=== PATIENT | male | born 1965 | race Caucasian/White ===

== ENCOUNTER 2017-02-12 06:15 | Emergency (ER) | payer OTHER ==
[2017-02-12 06:30] VITALS: BP 179/98
--- NOTE | 2017-02-12 07:45 | EDM.PDOC ---
ED HPI Trauma - General Chief Complaint: Lower Extremity Injury/Pain Stated Complaint: RIGHT KNEE HURTS Time Seen by Provider: 02/12/17 06:32 Source: Reports: Patient, RN notes reviewed History Limitations: Reports: No limitations - History of Present Illness INITIAL COMMENTS - FREE TEXT/NARRATIVE: The patient states that he pushed his lawn tractor into his garage last night, and while doing so, developed right knee pain, which is worse today. He did not fall or otherwise injure his knee. He is otherwise uninjured. He reports pain to the medial aspect of his right knee while at rest, made worse if he bears weight. He denies prior right knee injury. The patient drove himself here. Allergies/ADRs: Allergies No Known Allergies Allergy (Verified 02/12/17 06:25) Home Medications: Ambulatory Orders Citalopram [Citalopram Hbr] 40 mg PO DAILY 07/22/14 [Confirmed 01/29/16] Omeprazole 20 mg PO DAILY 07/22/14 [Confirmed 02/12/17] amLODIPine [Norvasc] 5 mg PO DAILY 07/22/14 [Confirmed 01/29/16] amLODIPine [Norvasc] 10 mg PO BEDTIME #30 tab 07/22/14 [Confirmed 01/29/16] Naproxen 1 tab PO Q12H PRN #20 tablet 02/12/17 Simvastatin [Simvastatin] 02/12/17 Past Medical History Cardiovascular History: Reports: High cholesterol, Hypertension Gastrointestinal History: Reports: GERD Psychiatric History: Reports: Depression Endocrine/Metabolic History: Reports: Diabetes, type II (resolved) - Past Surgical History GI Surgical History: Reports: Hernia, abdominal Social & Family History - Family History Family Medical History: Noncontributory - Tobacco Use Smoking Status *Q: Never Smoker Tobacco Use Within Last Twelve Months: Cigars - Alcohol Use Alcohol Use History: Yes Days Per Week of Alcohol Use: 7 Number of Drinks Per Day: 6 Total Drinks Per Week: 42 Alcohol Use Frequency: Socially - Recreational Drug Use Recreational Drug Use: No - Living Situation & Occupation Living situation: Reports: , with spouse 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[employer]) Review of Systems - Review of Systems Review Of Systems: See Below Constitutional: Reports: no symptoms Eyes: Reports: no symptoms Ears: Reports: no symptoms Nose: Reports: no symptoms Mouth/Throat: Reports: no symptoms Respiratory: Reports: No Symptoms Cardiovascular: Reports: no symptoms GI/Abdominal: Reports: No symptoms Genitourinary: Reports: no symptoms Musculoskeletal: Reports: no symptoms Skin: Reports: no symptoms Neurological: Reports: No Symptoms Psychiatric: Reports: no symptoms Trauma Exam - Physical Exam Exam: See Below Exam Limited By: No limitations General Appearance: Reports: alert, WD/WN, no apparent distress Extremities: Reports: other (No visible abnormality to the right knee, when compared to the left, such as swelling, erythema, ecchymosis, or abrasion. No visible or palpable effusion. There is tenderness to palpation of the medial aspect of the knee - no tenderness elsewhere. No laxity or pain adduction with stressing the medial or lateral collateral ligaments. Negative anterior and posterior drawer signs. Neurovascular status of the right lower extremity is intact.) Course - Vital Signs Last Recorded V/S: Last Vital Signs Temp 36.9 C 02/12/17 06:27 Pulse 70 02/12/17 06:27 Resp 18 02/12/17 06:27 BP 179/98 H 02/12/17 06:27 Pulse Ox 97 02/12/17 06:27 - Orders/Labs/Meds Orders: Active Orders 24 hr Category Date Time Status Knee 3V Rt [CR] Stat Exams 02/12/17 06:45 Taken DME for Discharge [COMM] Stat Oth 02/12/17 07:44 Ordered - Radiology Interpretation Free Text/Narrative:: 4-view radiographs of the right knee do not appear to demonstrate any acute abnormalities, such as fracture or dislocation. Small effusion cannot be excluded. Formal read per the Radiologist pending. - Re-Assessments/Exams Free Text/Narrative Re-Assessment/Exam: 02/12/17 07:45 I have ordered a knee immobilizer for the patient. We will see if he needs crutches, as well. 02/12/17 08:09 The patient does not feel that he needs crutches. Departure - Departure Time of Disposition: 08:03 Disposition: Home, Self-Care 01 Condition: fair Clinical Impression: Internal derangement of right knee Referrals: Charly Hernandez MD [Physician] - Forms: ED Department Discharge Additional Instructions: You were seen in the emergency room after straining your right knee. Workup in the ER included x-rays of your right knee. Your x-rays are normal. No fracture or dislocation. You have MOST LIKELY strained your right knee. You have been placed into a knee immobilizer. Apply this each morning, and remove at bedtime. Be careful going up or down stairs, as you will not be able to bend your right knee. You may apply an ice pack right over the knee immobilizer. You have been started on the pain medicine naproxen. Take one tablet every 12 hours, with food, as needed for pain. Followup with the Orthopedic Surgeon Dr. Hernandez at the next available appointment. If any other problems, please do not hesitate to return to the ER. - My Orders Last 24 Hours: My Active Orders 02/12/17 06:45 Knee 3V Rt [CR] Stat 02/12/17 07:44 DME for Discharge [COMM] Stat - Assessment/Plan Last 24 Hours: My Active Orders 02/12/17 06:45 Knee 3V Rt [CR] Stat 02/12/17 07:44 DME for Discharge [COMM] Stat
[2017-02-12] MEDS ORDERED: Naproxen 500 MG Tab PO ONE (07:55)
--- NOTE | 2017-02-12 16:18 | CR ---
Right knee: Four portable views of the right knee were obtained. Comparison: No previous study. Medial and lateral joint spaces are maintained in height. No joint effusion is seen. No fracture or other bony abnormality is identified. Impression: 1. No abnormality is identified on four-view right knee exam. Diagnostic code #1
== END 2017-02-12 08:15 | disposition home or self-care (01) ==
LOC: JD.ED 06:15
DX: M23.91 Unspecified internal derangement of right knee (principal); I10 Essential (primary) hypertension; E78.00 Pure hypercholesterolemia, unspecified; K21.9 Gastro-esophageal reflux disease without esophagitis; F32.9 Major depressive disorder, single episode, unspecified; E11.9 Type 2 diabetes mellitus without complications; Z79.899 Other long term (current) drug therapy
CPT/HCPCS: 73562; 99283; A9270; 99282

== ENCOUNTER 2018-01-17 11:07 | Day surgery (SDC) | payer OTHER ==
--- NOTE | 2018-01-17 10:46 | PCM.PREANE ---
<Ning Mayer - Last Filed: 01/17/18 10:41> Preanesthetic Assessment - Anesthesia/Transfusion/Family Hx Family History of Anesthesia Reaction: No Transfusion History: No Prior Transfusion(s) Intubation History: Unknown - Review of Systems Pulmonary: No Symptoms (smokes less than 1 pack/day times 30 years.) Cardiovascular: No Symptoms (History of HTN) Gastrointestinal: No Symptoms (GERD) Other: Reports: None (history of ETOH abuse), Diabetes (am blood sugar=), Depression, Anxiety - Physical Assessment NPO Status Date: 01/16/18 Mental Status: Alert & Oriented x3 - Lab Values: All lab values reviewed and noted and within acceptable ranges to proceed with scheduled procedure. - Allergies Allergies/Adverse Reactions: Allergies Allergy/AdvReac Type Severity Reaction Status Date / Time No Known Allergies Allergy Verified 02/12/17 06:25 - Anesthesia Plan Pre-Op Medication Ordered: None - Acknowledgements Anesthesia Type Planned: MAC Pt an Appropriate Candidate for the Planned Anesthesia: Yes Alternatives and Risks of Anesthesia Discussed w Pt/Guardian: Yes Pt/Guardian Understands and Agrees with Anesthesia Plan: Yes PreAnesthesia Questionnaire Cardiovascular History: Reports: High Cholesterol, Hypertension Respiratory History: Reports: COPD Gastrointestinal History: Reports: GERD Psychiatric History: Reports: Depression Endocrine/Metabolic History: Reports: Diabetes, Type II - Past Surgical History GI Surgical History: Reports: Hernia, Abdominal - SUBSTANCE USE Smoking Status *Q: Never Smoker Tobacco Use Within Last Twelve Months: Cigars Days Per Week of Alcohol Use: 7 Number of Drinks Per Day: 6 Total Drinks Per Week: 42 Recreational Drug Use History: No - HOME MEDS Home Medications: Home Meds Citalopram [Citalopram Hbr] 40 mg PO DAILY 07/22/14 [History] Omeprazole 20 mg PO DAILY 07/22/14 [History] amLODIPine [Norvasc] 5 mg PO DAILY 07/22/14 [History] amLODIPine [Norvasc] 10 mg PO BEDTIME #30 tab 07/22/14 [Rx] Naproxen 1 tab PO Q12H PRN #20 tablet 02/12/17 [Rx] Simvastatin [Simvastatin] 02/12/17 [History] - CURRENT (IN HOUSE) MEDS Current Meds: Current Medications Lactated Ringer's (Ringers, Lactated) 1,000 mls @ 125 mls/hr IV ASDIRECTED ELROY Lidocaine/Sodium Bicarbonate (Buffered Lidocaine 1% In Ns 8.4%) 0.25 ml IDERM ONETIME PRN PRN Reason: Prior to IV Start Sodium Chloride (Saline Flush) 10 ml FLUSH ASDIRECTED PRN PRN Reason: Keep Vein Open Discontinued Medications Lidocaine HCl (Xylocaine-Mpf 1%) Confirm Administered Dose 4 mls @ as directed .ROUTE .STK-MED ONE Stop: 01/17/18 10:24 Propofol (Diprivan 20 Ml) Confirm Administered Dose 400 mg .ROUTE .STK-MED ONE Stop: 01/17/18 10:24 <Arlyn Gutierres - Last Filed: 01/17/18 11:48> Preanesthetic Assessment - Procedure Proposed Procedure: Colonoscopy - Anesthesia/Transfusion/Family Hx Anesthesia History: No Prior Anesthesia - Review of Systems General: No Symptoms Pulmonary: Cough (Occasional, productive at times. ) Neurological: Headache (Started when he was drinking his bowel prep. ) - Physical Assessment NPO Status Time: 22:00 Pulse: 81 O2 Sat by Pulse Oximetry: 93 Respiratory Rate: 16 Blood Pressure: 162/113 Temperature: 36.4 C Weight: 118 kg ASA Class: 3 Airway Class: Mallampati = 2 Dentition: Reports: Broken Tooth/Teeth Thyro-Mental Finger Breadths: 3 Mouth Opening Finger Breadths: 3 ROM/Head Extension: Full Lungs: Clear to Auscultation, Normal Respiratory Effort Cardiovascular: Regular Rate, Regular Rhythm - Acknowledgements Additional Comments: Dr. Neville aware of high blood pressure. Patient states he is always this high. He does have a primary care doctor managing his blood pressure. He is aware he is at an increased risk for heart attack, stroke, and seizures. I did discuss the option of having him come back once his blood pressure is under better control as his colonoscopy is an elective procedure. Both Dr. Neville and Mr. Sabillon wish to proceed at this time.
[~2018-01-17 11:07] MED LIST: Lidocaine 1% 4 ML ONE; Propofol 200 MG/20 ML SDV ONE; Sodium Chloride 0.9% 10 ML Syringe FLUSH PRN
[2018-01-17] MEDS: Lidocaine 1%/Sod Bicarbonate in NS 8.4% 1 ML Syringe IDERM PRN (11:35)
[2018-01-17] MEDS: Lactated Ringers 1,000 ML IV SCH (11:35)
[2018-01-17] MEDS ORDERED: fentaNYL 100 MCG/2 ML SDV ONE (11:53)
[2018-01-17] MEDS ORDERED: Midazolam 1 MG/ML 2 ML SDV ONE (11:59)
[2018-01-17] MEDS ORDERED: Labetalol 100 MG/20 ML MDV ONE (12:03)
--- NOTE | 2018-01-17 12:22 | PCM.OPNOTE ---
- General Post-Op/Procedure Note Date of Surgery/Procedure: 01/17/18 Operative Procedure(s): Colonoscopy Findings: Uncomplicated small sigmoid diverticuli Pre Op Diagnosis: Screening colonoscopy Post-Op Diagnosis: Sigmoid diverticulosis Anesthesia Technique: MAC, Moderate Sedation Primary Surgeon: Salty Neville Pathology: None EBL in mLs: 0 Complications: None Condition: Good Free Text/Narrative:: After adequate IV sedation and analgesia was obtained with monitoring the patient was placed on his left side. Perianal inspection and digital rectal examination were performed and were unremarkable. A lubricated colonoscope was then inserted into the rectum then advanced under direct vision with air insufflation as necessary to reach cecum. The bowel preparation was adequate. The cecum ascending colon transverse and descending colons were endoscopically normal with no mass lesions or inflammatory changes seen. The sigmoid had a few scattered unconjugated diverticuli with some hypertrophy of the circular smooth muscle. The rectum in both views was unremarkable. Air was removed as I finished the procedure which he tolerated well. [employer] photographs were taken for the patient and for the medical record.
--- NOTE | 2018-01-17 12:26 | PCM48HPAN ---
Post Anesthesia Note - EVALUATION WITHIN 48HRS OF ANESTHETIC Vital Signs in Normal Range: Yes Patient Participated in Evaluation: Yes Respiratory Function Stable: Yes Airway Patent: Yes Cardiovascular Function Stable: Yes Hydration Status Stable: Yes Pain Control Satisfactory: Yes Nausea and Vomiting Control Satisfactory: Yes Mental Status Recovered: Yes Pulse Rate: 87 SaO2: 93 Resp Rate: 16 Temperature: 36.4 C Blood Pressure: 139/90
[2018-01-17] MEDS: amLODIPine 10 MG Tab PO ONE (12:32)
[2018-01-17 13:06] VITALS: BP 162/93
== END 2018-01-17 13:00 | disposition home or self-care (01) ==
LOC: JD.SDS 11:07
PROVIDERS: ATTEND Surgery
DX: Z12.11 Encounter for screening for malignant neoplasm of colon (principal); K57.30 Diverticulosis of large intestine without perforation or abscess without bleeding; K21.9 Gastro-esophageal reflux disease without esophagitis; F32.9 Major depressive disorder, single episode, unspecified; F41.1 Generalized anxiety disorder; E78.5 Hyperlipidemia, unspecified; I10 Essential (primary) hypertension; E66.9 Obesity, unspecified; F17.210 Nicotine dependence, cigarettes, uncomplicated; E11.9 Type 2 diabetes mellitus without complications; J44.9 Chronic obstructive pulmonary disease, unspecified; Z79.899 Other long term (current) drug therapy; Z79.84 Long term (current) use of oral hypoglycemic drugs; Z68.37 Body mass index [BMI] 37.0-37.9, adult
CPT/HCPCS: 45380; 82962; A9270; J2250; J3010; J7120; 00812; J2704

== ENCOUNTER 2020-04-13 13:07 | Day surgery (SDC) | payer OTHER ==
[2020-04-13] MEDS ORDERED: Vancomycin 1.75 GM in Sodium Chloride 0.9% 500 ML IV ONE (13:36)
[2020-04-13] MEDS ORDERED: Sodium Chloride 0.9% 10 ML Syringe FLUSH PRN (13:36)
[2020-04-13] MEDS ORDERED: Sodium Chloride 0.9% 1,000 ML IV ONE ×2 (13:37→19:34)
--- NOTE | 2020-04-13 14:05 | CR ---
Left forearm: 2 views left forearm were obtained. Multiple small radiopacities are noted within the posterior and ulnar side of the proximal forearm. Soft tissue swelling is seen in this area. No acute fracture or other bony abnormality is seen. Impression: 1. Small off radiopaque foreign bodies as noted above with soft tissue swelling. Diagnostic code #3 This report was dictated in MDT
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
[2020-04-13] MEDS ORDERED: metroNIDAZOLE/Normal Saline 500 MG in Premix Bag 1 BAG IV ONE (15:12)
[2020-04-13] MEDS ORDERED: Cefepime 2 GM in Premix Bag 1 BAG IV ONE (15:12)
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
[2020-04-13] MEDS ORDERED: Bupivacaine 0.5%/EPINEPHrine 1:200,000 50 ML MDV ONE (17:19)
[2020-04-13] MEDS ORDERED: Propofol 200 MG/20 ML SDV ONE (17:34)
[2020-04-13] MEDS ORDERED: fentaNYL 100 MCG/2 ML SDV ONE (17:34)
[2020-04-13] MEDS ORDERED: Midazolam 1 MG/ML 2 ML SDV ONE ×2 (17:35)
[2020-04-13] MEDS ORDERED: Bupivacaine 0.25% 10 ML SDV ONE (17:37)
--- NOTE | 2020-04-13 17:50 | PCM.PREANE ---
Preanesthetic Assessment - Anesthesia/Transfusion/Family Hx Anesthesia History: No Prior Anesthesia Transfusion History: No Prior Transfusion(s) Intubation History: Unknown - Review of Systems General: No Symptoms Pulmonary: Cough Cardiovascular: No Symptoms Gastrointestinal: No Symptoms Neurological: No Symptoms Other: Reports: None - Physical Assessment NPO Status Date: 04/12/20 NPO Status Time: 20:30 Vital Signs: Last Vital Signs Temp 97.7 F 04/13/20 16:53 Pulse 81 04/13/20 16:53 Resp 16 04/13/20 16:53 BP 118/76 04/13/20 16:53 Pulse Ox 91 L 04/13/20 16:53 Height: 1.73 m Weight: 110.223 kg ASA Class: 2E Mental Status: Alert & Oriented x3 Airway Class: Mallampati = 3 Dentition: Reports: Broken Tooth/Teeth, Missing Tooth/Teeth, Caries Thyro-Mental Finger Breadths: 3 Mouth Opening Finger Breadths: 3 ROM/Head Extension: Full Lungs: Clear to Auscultation, Decreased Breath Sounds Cardiovascular: Regular Rate, Regular Rhythm - Allergies Allergies/Adverse Reactions: Allergies Allergy/AdvReac Type Severity Reaction Status Date / Time No Known Allergies Allergy Verified 04/13/20 13:52 - Acknowledgements Anesthesia Type Planned: General Anesthesia, Regional Block (for postoperative pain - axillary), MAC Pt an Appropriate Candidate for the Planned Anesthesia: Yes Alternatives and Risks of Anesthesia Discussed w Pt/Guardian: Yes Pt/Guardian Understands and Agrees with Anesthesia Plan: Yes PreAnesthesia Questionnaire HEENT History: Reports: Impaired Vision Other HEENT History: wears glasses Cardiovascular History: Reports: High Cholesterol, Hypertension Respiratory History: Reports: COPD, Sleep Apnea Gastrointestinal History: Reports: GERD Musculoskeletal History: Reports: Other (See Below) Psychiatric History: Reports: Anxiety, Depression Endocrine/Metabolic History: Reports: Diabetes, Type II, Obesity/BMI 30+ - Past Surgical History Cardiovascular Surgical History: Reports: Coronary Artery Stent GI Surgical History: Reports: Hernia, Abdominal - SUBSTANCE USE Smoking Status *Q: Current Every Day Smoker Recreational Drug Use History: No - HOME MEDS Home Medications: Home Meds Citalopram [Citalopram HBr] 40 mg PO DAILY 07/22/14 [History] Omeprazole 20 mg PO DAILY 07/22/14 [History] amLODIPine [Norvasc] 5 mg PO DAILY 07/22/14 [History] Simvastatin 20 mg PO BEDTIME 02/12/17 [History] Ferrous Sulfate [Iron] 325 mg PO DAILY 01/17/18 [History] Fluticasone Propionate [Flonase] 2 spray JL DAILY 01/17/18 [History] Lisinopril 40 mg PO DAILY 01/17/18 [History] metFORMIN HCl [Metformin HCl] 1,000 mg PO BID 01/17/18 [History] Aspirin [Ecotrin EC] 81 mg PO DAILY 07/13/18 [History] - CURRENT (IN HOUSE) MEDS Current Meds: Current Medications Sodium Chloride (Saline Flush) 10 ml FLUSH ASDIRECTED PRN PRN Reason: Keep Vein Open Last Admin: 04/13/20 13:51 Dose: 10 ml Discontinued Medications Bupivacaine HCl (Sensorcaine-Mpf 0.25%) Confirm Administered Dose 10 ml .ROUTE .STK-MED ONE Stop: 04/13/20 17:38 Bupivacaine HCl/Epinephrine Bitart (Marcaine 0.5%/Epinephrine 1:200,000) Confirm Administered Dose 50 ml .ROUTE .STK-MED ONE Stop: 04/13/20 17:20 Fentanyl (Sublimaze) Confirm Administered Dose 100 mcg .ROUTE .STK-MED ONE Stop: 04/13/20 17:35 Sodium Chloride (Normal Saline) 1,000 mls @ 999 mls/hr IV ONETIME ONE Stop: 04/13/20 14:37 Last Admin: 04/13/20 13:50 Dose: 999 mls/hr Vancomycin HCl 1.75 gm/ Sodium (Chloride) 500 mls @ 250 mls/hr IV ONETIME ONE Stop: 04/13/20 13:37 Last Admin: 04/13/20 14:40 Dose: 250 mls/hr Cefepime HCl 2 gm/ Premix 50 mls @ 100 mls/hr IV ONETIME ONE Stop: 04/13/20 15:41 Last Admin: 04/13/20 15:51 Dose: 100 mls/hr Metronidazole 500 mg/ Premix 100 mls @ 100 mls/hr IV ONETIME ONE Stop: 04/13/20 16:11 Last Admin: 04/13/20 15:47 Dose: 100 mls/hr Midazolam HCl (Versed 1 Mg/Ml) Confirm Administered Dose 4 mg .ROUTE .STK-MED ONE Stop: 04/13/20 17:36 Midazolam HCl (Versed 1 Mg/Ml) Confirm Administered Dose 2 mg .ROUTE .STK-MED ONE Stop: 04/13/20 17:36 Propofol (Diprivan 20 Ml) Confirm Administered Dose 200 mg .ROUTE .STK-MED ONE Stop: 04/13/20 17:35
[2020-04-13] MEDS ORDERED: Ondansetron 4 MG/2 ML SDV ONE (19:13)
[2020-04-13] MEDS ORDERED: HYDROmorphone 0.5 MG/0.5 ML Syringe IVPUSH PRN (19:19)
[2020-04-13] MEDS ORDERED: fentaNYL 100 MCG/2 ML SDV IVPUSH PRN (19:19)
--- NOTE | 2020-04-13 19:27 | PCM.PRNOTE ---
- Free Text/Narrative Note: Postoperative regional pain control requested by surgeon. Pre-op Dx: Left forearm wound Surgical procedure: Left forearm wound debridement and washout Procedure: Left axillary block of brachial plexus with U/S guidance Requesting physician: Dr. Hussein Singleton Risks and benefits discussed with the patient preoperatively including infection, bleeding, incomplete or failed block, possible nerve damage, local anesthetic toxicity. Chart reviewed, VS stable. Permit signed. Patient in preoperative room, stable , alert and awake. Time out performed at 18 :08. Oxygen 3L via NC. Left arm abducted 90 degrees, supinated and supported on the bedside table. Left arm has been prepped with Chloraprep x 1 and allowed to dry. Midazolam 4 mg IV given incrementally. Under aseptic technique, the brachial plexus branches were identified around axillary artery under ultrasound prior to needle insertion. 2" Stimuplex needle #22 G was inserted under US guidance. Under direct visualization of needle tip the injection of 0.25% Bupivacaine 10 ml mixed with 10 ml of Lidocaine 2% with 1:200k epinephrine total of 20 mls in divided doses around median, radial and ulnar branches. Negative aspiration was maintained with each 3 ml aliquot of injection. completed without problems. No local anesthetic toxicity was noted. Patient is awake, stable and tolerated the procedure well. Please see the attached U/S images Time: 18:08 - 18:16
[2020-04-13] MEDS ORDERED: Morphine 2 MG/ML Syringe IVPUSH PRN (19:28)
[2020-04-13] MEDS: Lactated Ringers 1,000 ML IV SCH (19:35)
--- NOTE | 2020-04-13 19:45 | PCM.PRNOTE ---
- Free Text/Narrative Note: Date: 04/13/2020 Operation: left forearm wound debridement and washout Findings: minimal devitalized tissue. No purulence. Specimen for culture sent from wound EBL 50 cc Detailed Report: The patient had a regional block placed by the anesthesia provider in holding. The patient was taken to the OR and timeout performed. Monitored sedation was provided. The left arm was prepped and draped in sterile fashion. 10 cc 0.5% marcaine with epinephrine was injected around the wound. The wound opening was probed with a hemostat. There was a thin layer of necrotic debris/ devitalized tissue. This was removed sharply with scissors. There was healthy subcutaneous fat beneath this. There was some undermining between skin and the underlying soft tissue. No pus or foul odor was encountered. The ragged skin edges were debrided sharply with monopolar energy back to healthy, bleeding tissue. In the wound bed, a vein was transected during debridement. This was controlled with a hemostat, and a vicryl suture ligature was placed. With all devitalized tissue sharply debrided, the wound measured about 4 x 3 x 1 cm. A specimen from the wound was sent for culture. 700 cc sterile saline solution was used to irrigate the wound. A moist kerlix was used to pack to wound bed, and dry kerlix wrapped around this site. This was reinforced with an IVONNE wrap. The patient tolerated the procedure well. Hussein Singleton MD General Surgery
--- NOTE | 2020-04-13 19:56 | PCM48HPAN ---
Post Anesthesia Note - EVALUATION WITHIN 48HRS OF ANESTHETIC Vital Signs in Normal Range: Yes Patient Participated in Evaluation: Yes Respiratory Function Stable: Yes Airway Patent: Yes Cardiovascular Function Stable: Yes Hydration Status Stable: Yes Pain Control Satisfactory: Yes Nausea and Vomiting Control Satisfactory: Yes Mental Status Recovered: Yes Vital Signs: Last Vital Signs Temp 98.6 F 04/13/20 19:31 Pulse 81 04/13/20 16:53 Resp 16 04/13/20 19:45 BP 128/65 04/13/20 19:45 Pulse Ox 93 L 04/13/20 19:45
[2020-04-13] MEDS ORDERED: Simvastatin 20 MG Tab PO SCH (21:00)
[2020-04-13] MEDS: Acetaminophen 325 MG Tab PO SCH (22:11)
[2020-04-13] MEDS: Cefepime 1 GM in Premix Bag 1 BAG IV SCH (22:23)
[2020-04-13] MEDS: metroNIDAZOLE/Normal Saline 500 MG in Premix Bag 1 BAG IV SCH (23:45)
[2020-04-14] MEDS: oxyCODONE 5 MG Tab PO PRN ×2 (00:51→08:25)
[2020-04-14] MEDS: Acetaminophen 325 MG Tab PO SCH ×2 (04:54→11:52)
[2020-04-14] MEDS: Lactated Ringers 1,000 ML IV SCH (05:02)
[2020-04-14] MEDS: Cefepime 1 GM in Premix Bag 1 BAG IV SCH (08:26)
[2020-04-14] MEDS: metroNIDAZOLE/Normal Saline 500 MG in Premix Bag 1 BAG IV SCH (08:28)
[2020-04-14 08:44] VITALS: BP 98/76
[2020-04-14] MEDS ORDERED: amLODIPine 5 MG Tab PO SCH (09:00)
[2020-04-14] MEDS ORDERED: Aspirin 81 MG Tab.EC PO SCH (09:00)
[2020-04-14] MEDS ORDERED: Citalopram 20 MG Tab PO SCH (09:00)
[2020-04-14] MEDS ORDERED: Pantoprazole 40 MG Tab.CR PO SCH (09:00)
[2020-04-14] MEDS ORDERED: Vancomycin 1.75 GM in Sodium Chloride 0.9% 500 ML IV ONE (09:00)
[2020-04-14 09:49] VITALS: PULSE 71
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
== END 2020-04-14 12:00 | disposition home or self-care (01) ==
LOC: JD.ED 13:07 → JD.SDS 15:10 → JD.MS 17:00 → JD.SDS 04-14 12:00
PROVIDERS: ATTEND Surgery
DX: S51.842A Puncture wound with foreign body of left forearm, initial encounter (principal); E78.00 Pure hypercholesterolemia, unspecified; I10 Essential (primary) hypertension; J44.9 Chronic obstructive pulmonary disease, unspecified; F32.9 Major depressive disorder, single episode, unspecified; K21.9 Gastro-esophageal reflux disease without esophagitis; E11.9 Type 2 diabetes mellitus without complications; E66.9 Obesity, unspecified; F17.210 Nicotine dependence, cigarettes, uncomplicated; Z79.82 Long term (current) use of aspirin; Z68.36 Body mass index [BMI] 36.0-36.9, adult; Z79.84 Long term (current) use of oral hypoglycemic drugs; Z79.899 Other long term (current) drug therapy; V28.4XXA Motorcycle driver injured in noncollision transport accident in traffic accident, initial encounter; Y93.55 Activity, bike riding; Y92.410 Unspecified street and highway as the place of occurrence of the external cause
CPT/HCPCS: 11042; 36415; 73090; 80048; 85025; 87075; 87205; A9270; J0692; J2250; J2405; J2704; J3010; J3370; J3490; J7030; J7040; J7120; 00400; 64417; 87070; 96365; 96366; 96368; 99285-25